=== PATIENT | female | born 1965 | race Caucasian/White ===

== ENCOUNTER → 2019-04-29 | Outpatient (CLI) | payer BC ==
[~2019-04-29] MED LIST: CELEXA10 MG PO; NORCO 325 MG-51 TAB PO; PREDNISONE20 MG PO; PRILOSEC 20MG20 MG PO; PRINIVIL10 MG PO
== END ==
LOC: MC.RAD 07:55
DX: Z12.31 Encounter for screening mammogram for malignant neoplasm of breast (principal); N64.89 Other specified disorders of breast

== ENCOUNTER → 2019-05-03 | Outpatient (CLI) | payer BC | LOC: MC.RAD 13:18 | DX: N64.89 Other specified disorders of breast (principal) | CPT/HCPCS: G0279 ==